=== PATIENT | male | born 1950 | race Caucasian/White ===

== ENCOUNTER 2023-01-28 11:14 | Inpatient (IN) | payer MEDICARE, OTHER ==
[~2023-01-28] VITALS: Ht 188 cm; Wt 109.0 kg
[2023-01-28] VITALS (12 sets, daily range): BP systolic 61–101; BP diastolic 28–57
[2023-01-28] MEDS ORDERED: MIDAZOLAM DRIP 50 mg/50mL 50 ML IV ONE (11:29)
[2023-01-28] MEDS ORDERED: AZITHROMYCIN 500MG/ 250ML 250 ML IV ONE (11:30)
[2023-01-28] MEDS ORDERED: methylPREDNISolone SOD SUCC 125 MG/2 ML VL IV ONE (11:30)
[2023-01-28] MEDS: MIDAZOLAM DRIP 50 mg/50mL 50 ML IV SCH ×2 (11:35→14:49)
[2023-01-28] MEDS ORDERED: PROPOFOL 100 ML IV ONE (11:58)
[2023-01-28 12:06] LABS: Hemoglobin 14.9 g/dL (13.5-17.5)
[2023-01-28 12:07] LABS: Lactic Acid w/Reflex 9.8 mmol/L (0.4-2.0)
[2023-01-28 12:08] LABS: Hematocrit 46.1 % (41.0-53.0); Mean Corpuscular Hemoglobin 29.8 pg (28.0-32.0); Mean Corpuscular Hgb Conc. 32.3 g/dL (32.0-36.0); Mean Corpuscular Volume 92.3 fL (80.0-100.0); Red Cell Distribution Width 15.4 % (11.8-14.3)
[2023-01-28 12:12] LABS: Albumin 2.2 g/dL (3.4-5.0); BUN/Creatinine Ratio 23.4; Bilirubin, Total 0.7 mg/dL (0.2-1.0); Magnesium 2.1 mg/dL (1.6-2.6); Total Protein 4.2 g/dL (6.4-8.2)
[2023-01-28] MEDS ORDERED: NOREPINEPHRINE 8 MG/250ML KIT 250 ML IV ONE (12:14)
[2023-01-28] MEDS ORDERED: ENOXAPARIN SOD 100 MG/1 ML SYRINGE SC ONE (12:15)
[2023-01-28] MEDS ORDERED: PROPOFOL 100 ML IV SCH (12:15)
[2023-01-28] MEDS ORDERED: SODIUM BICARBONATE 8.4% INJ 50ML SYRINGE ONE ×3 (12:21→20:58)
[2023-01-28] MEDS ORDERED: NOREPINEPHRINE 8 MG/250ML KIT 250 ML IV SCH (12:30)
[2023-01-28 12:40] LABS: Potassium 2.8 mmol/L (3.5-5.1)
[2023-01-28 12:41] LABS: Calcium 5.7 mg/dL (8.5-10.1)
[2023-01-28 12:58] LABS: White Blood Cell 38.2 10^3/uL (4.4-10.8)
[2023-01-28 13:00] LABS: Basophils % (manual) 0 (0.0-2.0); Blast Cells 0; Eosinophils % (manual) 0 (0-7); Metamyelocytes % 0; Myelocytes % 0; Promyelocytes % 0; Reactive Lymphocytes 0
[2023-01-28] MEDS ORDERED: cefTRIAXone 1GM/50ML D5W 50 ML IV ONE (13:00)
[2023-01-28] MEDS: POTASSIUM CHL 20MEQ/100ML 100 ML IV SCH ×4 (13:06→19:43)
[2023-01-28] MEDS ORDERED: diphenhdrAMINE HCL 50 MG/1 ML VL ONE (13:13)
[2023-01-28] MEDS ORDERED: IOHEXOL 350 MG/ML 100ML IJ ONE (13:13)
[2023-01-28] MEDS ORDERED: diphenhdrAMINE HCL 50 MG/1 ML VL IV ONE (13:15)
[2023-01-28] MEDS ORDERED: HEPARIN DRIP/D5W 100UNITS/ML 250 ML IV SCH ×3 (13:30→16:45)
[2023-01-28] MEDS ORDERED: HEPARIN SODIUM (PORCINE) 5000 UNITS/ML 1ML VIAL IV ONE (13:30)
[2023-01-28 13:36] LABS: Band Neutrophils % (manual) 4; Lymphocytes % (manual) 55 (10.0-50.0); Monocytes % (manual) 4 (0-12)
[2023-01-28] MEDS ORDERED: EPINEPHrine HCL 250 ML IV ONE ×3 (14:19→16:45)
[2023-01-28] MEDS ORDERED: ALTEPLASE (RECOMBINANT) 100 MG in STERILE WATER 100 ML IV ONE (14:45)
[2023-01-28] MEDS ORDERED: DOPamine 1600MCG/ML D5W 250 ML IV ONE ×2 (15:45→20:35)
[2023-01-28] MEDS ORDERED: MORPHINE SULFATE INJ 2 MG/ml SYRG IV PRN (16:30)
[2023-01-28] MEDS ORDERED: VANCOMYCIN PER PHARMACY 0 MG IV SCH (16:30)
[2023-01-28] MEDS ORDERED: NITROGLYCERIN 0.4 MG SL TAB SL PRN (16:30)
[2023-01-28] MEDS ORDERED: SODIUM BICARBONATE 50ML VIAL 100 ML in D5W 5% 1,000 ML IV SCH (16:45)
[2023-01-28] MEDS ORDERED: PANTOPRAZOLE 40 MG/10 ML VIAL INJ IV ONE (16:45)
[2023-01-28] MEDS ORDERED: MAGNESIUM SULFATE 1GM/100ML 100 ML IV SCH (16:45)
[2023-01-28] MEDS ORDERED: SODIUM CHLORIDE 0.9% 1,000 ML IV ONE (17:00)
[2023-01-28] MEDS ORDERED: REMDESIVIR PER PHARMACY 0 ML IV SCH (17:00)
[2023-01-28] MEDS ORDERED: VANCOMYCIN 1GM/250ML 250 ML IV SCH (17:00)
[2023-01-28 17:02] LABS: Cholesterol 111 mg/dL (< 200); LDL Cholesterol 77 mg/dL (< 100); Triglycerides 119 mg/dL (< 150)
[2023-01-28 17:04] LABS: HDL Cholesterol 30 mg/dL (40-59)
[2023-01-28] MEDS ORDERED: REMDESIVIR 200 MG in NS 210ml LOADING DOSE ADULT IV ONE (17:30)
[2023-01-28 17:35] LABS: Hematocrit 44.1 % (41.0-53.0); Hemoglobin 13.4 g/dL (13.5-17.5); Mean Corpuscular Hemoglobin 28.7 pg (28.0-32.0); Mean Corpuscular Hgb Conc. 30.4 g/dL (32.0-36.0); Mean Corpuscular Volume 94.2 fL (80.0-100.0); Red Blood Cells 4.68 10^6/uL (4.5-5.90); Red Cell Distribution Width 15.9 % (11.8-14.3)
[2023-01-28 17:56] LABS: INR 2.05 (0.9-1.15)
[2023-01-28 18:05] LABS: Partial Thromboplastin Time 81.7 sec (24.6-33.4); White Blood Cell 68.3 10^3/uL (4.4-10.8)
[2023-01-28 18:06] LABS: Basophils % (manual) 0 (0.0-2.0); Blast Cells 0; Metamyelocytes % 0; Promyelocytes % 0; Reactive Lymphocytes 0
[2023-01-28 19:01] LABS: Band Neutrophils % (manual) 10; Eosinophils % (manual) 1 (0-7); Lymphocytes % (manual) 41 (10.0-50.0); Monocytes % (manual) 5 (0-12); Myelocytes % 2
[2023-01-28] MEDS ORDERED: PHENYLEPHRINE IV 250 ML IV ONE ×2 (19:03→20:50)
[2023-01-28] MEDS ORDERED: PHENYLEPHRINE IV 250 ML IV SCH ×2 (19:15→19:30)
[2023-01-28] MEDS ORDERED: VASOPRESSIN 20 UNITS in SODIUM CHL 0.9% 99 ML IV SCH (19:30)
[2023-01-28] MEDS ORDERED: fentaNYL Drip 2500mCg/250mlNS 250 ML IV ONE (19:48)
[2023-01-28] MEDS ORDERED: fentaNYL Drip 2500mCg/250mlNS 250 ML IV SCH (20:00)
[2023-01-28] MEDS ORDERED: PHENYLEPHRINE INJ 80 MG in SODIUM CHL 0.9% 242 ML IV SCH (20:15)
[2023-01-28] MEDS ORDERED: NOREPINEPHRINE BITARTRATE 32 MG in SODIUM CHL 0.9% 218 ML IV SCH (20:15)
[2023-01-28] MEDS ORDERED: ALBUMIN 5% 250 ML IV ONE ×2 (20:44→20:45)
[2023-01-28] MEDS ORDERED: SODIUM BICARBONATE 50ML VIAL 150 ML in D5W 5% 1,000 ML IV SCH (21:00)
[2023-01-28] MEDS ORDERED: SODIUM BICARBONATE 8.4 % INJ 50ML VIAL IV ONE (21:00)
[2023-01-28] MEDS ORDERED: CEFEPIME 1GM/ 50ML 50 ML IV SCH (22:00)
[2023-01-29] MEDS ORDERED: PANTOPRAZOLE 40 MG/10 ML VIAL INJ IV SCH (10:00)
[2023-01-29] MEDS ORDERED: REMDESIVIR 100mg 100 MG in SODIUM CHL 0.9% 230 ML IV SCH (15:00)
== END 2023-01-28 21:32 | DRG 208 ==
LOC: ER 11:14 → EDUNIT# 11:14 → EDBD 11:14 → ICU WEST 16:29 → ER 18:30 → ICU WEST 18:58
PROVIDERS: ADMIT Nurse Practitioner Family; ATTEND Nurse Practitioner Family
PROC: 0BH17EZ Insertion of Endotracheal Airway into Trachea, Via Natural or Artificial Opening (ICD-10-PCS; principal; 2023-01-28)
PROC: 5A1935Z Respiratory Ventilation, Less than 24 Consecutive Hours (ICD-10-PCS; 2023-01-28)
PROC: 02HV33Z Insertion of Infusion Device into Superior Vena Cava, Percutaneous Approach (ICD-10-PCS; 2023-01-28)
PROC: 5A12012 Performance of Cardiac Output, Single, Manual (ICD-10-PCS; 2023-01-28)
DX: U07.1 COVID-19 (principal); J96.00 Acute respiratory failure, unspecified whether with hypoxia or hypercapnia; N18.6 End stage renal disease; I26.92 Saddle embolus of pulmonary artery without acute cor pulmonale; F50.2 Bulimia nervosa; I12.0 Hypertensive chronic kidney disease with stage 5 chronic kidney disease or end stage renal disease; E83.51 Hypocalcemia; E87.6 Hypokalemia; I46.9 Cardiac arrest, cause unspecified; E11.22 Type 2 diabetes mellitus with diabetic chronic kidney disease; E78.5 Hyperlipidemia, unspecified; J44.9 Chronic obstructive pulmonary disease, unspecified; F41.9 Anxiety disorder, unspecified; Z28.21 Immunization not carried out because of patient refusal
CPT/HCPCS: 31500; 36415; 36556; 36600; 70450; 71045; 71275; 80053; 80061; 82805; 82962; 83036; 83605; 83735; 83880; 84443; 84484; 85007; 85027; 85379; 85610; 85730; 87040; 87070; 87081; 87205; 87426; 87804; 92950; 93005; 93306; 93970; 94002; 96365; 96367; 96375; 99291; 99292; C9113; G0378; J0171; J2250; J2704; J3480